=== PATIENT | female | born 1995 | race African-American/Black ===

== ENCOUNTER 2018-12-01 22:00 | Emergency (ER) | payer SELFPAY ==
[~2018-12-01] VITALS: Ht 160 cm; Wt 64.4 kg
[2018-12-01] MEDS ORDERED: NKM (22:15)
--- NOTE | 2018-12-01 22:25 | NUR ---
ELOPEMENT: pt walked in due to right upper thigh pain started 3 months ago, pain level 10/10. Pt is AO x 4times, VSS, on room air no distress. HUYD seen Pt at bedside.
[2018-12-01 22:36] VITALS: BP 105/65
--- NOTE | 2018-12-01 22:37 | NUR ---
ER DISCHARGE NOTE: Patient is cleared to be discharged per ERMD, pt is aox4, on room air, with stable vital signs. pt was given dc and prescription instructions, pt was able to verbalize understanding, pt id band removed without complications. pt is able to ambulate with steady gait. pt took all belongings.
[2018-12-01] MEDS ORDERED: IBUPROFEN600 MG ORAL (22:40)
[2018-12-01] MEDS ORDERED: ROBAXIN-750750 MG PO (22:40)
--- NOTE | 2018-12-02 02:09 | Emergency Room Report ---
History of Present Illness General Chief Complaint: Lower Extremity Injury Source: Patient Present Illness HPI 23-year-old female presents ED complaining of right thigh pain. States that it started 3 months ago after she performed some exercise and felt a pull in her groin area. States is getting progressively worse. States pain is throbbing, 8 out of 10, radiating down the thigh. Is able to walk but with difficulty. Denies any back pain. Denies any flank pain. Denies any dysuria or hematuria. No other aggravating relieving factors. Denies any other associated symptoms Allergies: Coded Allergies: No Known Allergies (Unverified , 12/01/18) Patient History Past Medical History: none Past Surgical History: none Pertinent Family History: none Social History: Denies: smoking, alcohol use, drug use Last Menstrual Period: nov 12 Now: No : 0 Para: 0 Immunizations: UTD Reviewed Nursing Documentation: PMH: Agreed; PSxH: Agreed Nursing Documentation-PMH Past Medical History: No Stated History Review of Systems All Other Systems: negative except mentioned in HPI Physical Exam Vital Signs Date Time Temp Pulse Resp B/P (MAP) Pulse Ox O2 Delivery O2 Flow Rate FiO2 12/01/18 22:08 98.4 87 16 105/65 97 Room Air Sp02 EP Interpretation: reviewed, normal General Appearance: no apparent distress, alert, GCS 15, non-toxic Head: normocephalic Eyes: bilateral eye normal inspection, bilateral eye PERRL ENT: normal ENT inspection Neck: normal inspection Respiratory: normal inspection Cardiovascular #1: normal inspection Gastrointestinal: normal bowel sounds, non tender, soft, non-distended, no guarding, no rebound Rectal: deferred Genitourinary: no CVA tenderness Musculoskeletal: back normal, gait/station normal, normal range of motion, tender - Tender with R hip external rotation. no crepitus/bruising Neurologic: alert, oriented x3, responsive, motor strength/tone normal, sensory intact, speech normal Psychiatric: normal inspection Skin: normal inspection Lymphatic: normal inspection Medical Decision Making Diagnostic Impression: Primary Impression: Leg strain ER Course Hospital Course 23-year-old female presents to ED complaining of R thigh/hip pain Differential diagnoses include: Fracture, dislocation, sprain, contusion, bursitis Clinical course Patient placed on stretcher. After initial history, physical exam reveals a female in no acute distress. On exam there is full external rotation to the right hip but with pain. No crepitus or bruising. No bony tenderness. No flank pain. Abdomen soft. Discussed findings with patient. Likely pulled muscle based on mechanism of injury. Imaging not indicated at this time. I recommended that patient restrict exercise at this time. We will attempt conservative therapy with NSAIDs, muscle relaxers Safe for discharge with close outpatient follow-up. We'll provide ortho referrals Diagnosis - leg strain stable and discharged to home with prescription for Motrin, Robaxin. Followup with PMD. Return to ED if symptoms recur or worsen Last Vital Signs Date Time Temp Pulse Resp B/P (MAP) Pulse Ox O2 Delivery O2 Flow Rate FiO2 12/01/18 22:36 98.4 16 105/65 97 Room Air 12/01/18 22:08 87 Status: improved Disposition: HOME, SELF-CARE Condition: Improved Scripts Methocarbamol* (ROBAXIN-750*) 750 Mg Tablet 750 MG PO TID, #21 TAB 0 Refills Prov: Donnie Onofre MD 12/01/18 Ibuprofen* (MOTRIN*) 600 Mg Tablet 600 MG ORAL Q8H PRN for For Pain, #30 TAB 0 Refills Prov: Donnie Onofre MD 12/01/18 Referrals: NOT CHOSEN IPA/,REFERRING (PCP) [facility] Open 24 hour /7 days a week by Appointment Only [address] [facility] [address] Patient Instructions: Muscle Strain, [id number] Donnie Onofre MD Dec 02, 2018 02:09
== END 2018-12-01 23:30 | disposition home or self-care (01) ==
LOC: EMR 22:31
DX: S76.911A Strain of unspecified muscles, fascia and tendons at thigh level, right thigh, initial encounter (principal); Y93.B9 Activity, other involving muscle strengthening exercises; Y92.9 Unspecified place or not applicable
CPT/HCPCS: 99282